=== PATIENT | female | born 1995 | race Caucasian/White ===

== ENCOUNTER → 2020-03-28 15:07 | Outpatient (CLI) | payer MEDICARE, MEDICAID, SELFPAY ==
--- NOTE | 2020-03-28 15:07 | US_ITS ---
PROCEDURE: US BREAST RT COMPLETE CLINICAL INDICATION: US Right breast-nodule in breast History of palpable nodule in the right breast upper aspect COMPARISON: No exams were available for comparison FINDINGS: No cystic or solid lesions demonstrated. IMPRESSION: Unremarkable right breast ultrasound. Any palpable nodule should be managed on a clinical basis. Dictated by: Sarkis Heath MD 03/30/2020 13:32 Sarkis Heath MD in [facility] 03/30/2020 13:32
== END ==
PROVIDERS: PCP Family Medicine; Visit Provider Obstetrics & Gynecology
DX: N64.4 Mastodynia (principal)
CPT/HCPCS: 76641